=== PATIENT | female | born 1945 | race Caucasian/White ===

== ENCOUNTER 2017-10-14 15:47 | Inpatient (IN) | payer MEDICARE ==
[~2017-10-14] VITALS: Ht 162.6 cm; Wt 79.4 kg
[~2017-10-14 15:47] MED LIST: INDO25 PO; TRAM50 PO; UNKOWN HTN MED
[2017-11-02] MEDS ORDERED: TRAM50 PO (14:41)
[2017-11-02] MEDS ORDERED: LISI20 PO (14:42)
[2017-11-02] MEDS ORDERED: DICMIS50EC PO (14:43)
[2017-11-02] MEDS ORDERED: Flonase 0.05% N16 GM (14:43)
[2017-11-02] MEDS ORDERED: AMLO5 PO (14:44)
[2017-11-02] MEDS ORDERED: BACL10 PO (14:44)
[2017-11-02] MEDS ORDERED: FOLI1 PO (14:45)
[2017-11-02] MEDS ORDERED: METTREX2.5 PO (14:45)
[2017-11-02] MEDS ORDERED: DIPH50 PO (15:06)
[2017-11-16] MEDS ORDERED: MUPIROCIN1 GM TOP (06:48)
[2017-11-17 04:57] LABS: BASOPHILS ABSOLUTE AUTO 0.04 K/mm3 (0.00-0.23); BASOPHILS PERCENT AUTO 1 % (0-2); EOSINOPHILS ABSOLUTE AUTO 0.03 K/mm3 (0.00-0.68); EOSINOPHILS PERCENT AUTO 0 % (0-6); Hematocrit 33.7 % (33.0-51.0); Hemoglobin 10.9 g/dL (11.5-16.0); IMMATURE GRAN ABSOLUTE AUTO 0.02 K/mm3 (0.00-0.10); IMMATURE GRAN PERCENT AUTO 0 % (0-1); LYMPHOCYTES ABSOLUTE AUTO 1.06 K/mm3 (0.84-5.20); LYMPHOCYTES PERCENT AUTO 13 % (21-46); MONOCYTES ABSOLUTE AUTO 0.53 K/mm3 (0.16-1.47); MONOCYTES PERCENT AUTO 6 % (4-13); Mean Corpuscular HGB 29.6 pg (26.0-34.0); Mean Corpuscular HGB Conc 32.3 g/dL (31.5-36.5); Mean Corpuscular Volume 92 fL (80-100); Mean Platelet Volume 11.8 fL (9.1-12.4); NEUTROPHILS ABSOLUTE AUTO 6.82 K/mm3 (1.96-9.15); NEUTROPHILS PERCENT AUTO 80 % (41-73); Platelet Count 190 K/mm3 (150-400); RDW Coefficient Variation 12.6 % (11.7-14.2); RDW Standard Deviation 41.9 fL (35.1-46.3); Red Blood Cell Count 3.68 M/mm3 (3.80-5.20)
[2017-11-17 05:23] LABS: Anion Gap 8 mmol/L (6-16); Blood Urea Nitrogen 8 mg/dL (8-24); Bun/Creatinine Ratio 12.3 (12.0-20.0); CO2, Blood 27 mmol/L (21-32); Calcium, Blood 7.8 mg/dL (8.5-10.1); Chloride, Blood 104 mmol/L (98-108); Creatinine, Blood 0.65 mg/dL (0.40-1.00); Glomerular Filtration Rate >60 (60-); Glucose, Blood 122 mg/dL (70-99); Potassium, Blood 3.9 mmol/L (3.5-5.5); Sodium, Blood 139 mmol/L (136-145)
[2017-11-19] MEDS ORDERED: ASPI325 PO (09:04)
[2017-11-19] MEDS ORDERED: Percocet 5-3251 EACH PO (09:05)
[2017-11-19] MEDS ORDERED: Augmentin 875-1 EACH PO (09:05)
== END 2017-11-19 10:15 | disposition home health service (06) | DRG 470 ==
LOC: SURS 11-16 05:57 → PRE IP 11-16 07:30 → SURS 11-16 11:03
PROVIDERS: Orthopaedic Surgery
PROC: BQ14ZZZ Fluoroscopy of Left Femur (ICD-10-PCS; 2017-11-16)
PROC: 0SRB04Z Replacement of Left Hip Joint with Ceramic on Polyethylene Synthetic Substitute, Open Approach (ICD-10-PCS; principal; 2017-11-16 07:30)
DX: M16.12 Unilateral primary osteoarthritis, left hip (principal); M06.9 Rheumatoid arthritis, unspecified; I10 Essential (primary) hypertension; Z88.2 Allergy status to sulfonamides; Z88.5 Allergy status to narcotic agent; Z88.8 Allergy status to other drugs, medicaments and biological substances; R06.02 Shortness of breath; Z87.891 Personal history of nicotine dependence; Z79.899 Other long term (current) drug therapy
CPT/HCPCS: 36415; 71046; 72170; 80048; 85025; 86850; 86900; 86901; 88300; 93017; 97110; 97116; 97162; 97530; C1776; G8978; G8979; J0171; J0280; J0690; J0735; J1170; J1885; J2250; J2405; J2765; J2785; J2795; J3010; J7120; Q0163

== ENCOUNTER 2019-06-17 12:30 | Emergency (ER) | payer MEDICARE ==
[~2019-06-17] VITALS: Ht 162.6 cm; Wt 74.8 kg
[~2019-06-17 12:30] MED LIST changes: +AMLO5 PO; +ASPI325 PO; +Augmentin 875-1 EACH PO; +BACL10 PO; +DICMIS50EC PO; +DIPH50 PO; +FOLI1 PO; +Flonase 0.05% N16 GM; +LISI20 PO; +METTREX2.5 PO; +MUPIROCIN1 GM TOP; +Percocet 5-3251 EACH PO
[2019-06-17] MEDS ORDERED: TIZA4 PO (12:50)
[2019-06-17 13:01] LABS: BASOPHILS ABSOLUTE AUTO 0.08 K/mm3 (0.00-0.23); BASOPHILS PERCENT AUTO 1 % (0-2); EOSINOPHILS ABSOLUTE AUTO 0.12 K/mm3 (0.00-0.68); EOSINOPHILS PERCENT AUTO 1 % (0-6); Hematocrit 43.1 % (33.0-51.0); Hemoglobin 14.3 g/dL (11.5-16.0); IMMATURE GRAN ABSOLUTE AUTO 0.02 K/mm3 (0.00-0.10); IMMATURE GRAN PERCENT AUTO 0 % (0-1); LYMPHOCYTES ABSOLUTE AUTO 1.77 K/mm3 (0.84-5.20); LYMPHOCYTES PERCENT AUTO 21 % (21-46); MONOCYTES PERCENT AUTO 7 % (4-13); Mean Corpuscular HGB 30.9 pg (26.0-34.0); Mean Corpuscular HGB Conc 33.2 g/dL (31.5-36.5); Mean Corpuscular Volume 93 fL (80-100); Mean Platelet Volume 11.6 fL (9.1-12.4); NEUTROPHILS ABSOLUTE AUTO 6.05 K/mm3 (1.96-9.15); NEUTROPHILS PERCENT AUTO 70 % (41-73); Platelet Count 209 K/mm3 (150-400); RDW Coefficient Variation 13.4 % (11.7-14.2); RDW Standard Deviation 45.3 fL (35.1-46.3); Red Blood Cell Count 4.63 M/mm3 (3.80-5.20); White Blood Cell Count 8.64 K/mm3 (4.00-11.30)
[2019-06-17 13:23] LABS: Alanine Aminotransfer (ALT/SGP 25 U/L (12-78); Albumin, Blood 3.9 g/dL (3.4-5.0); Albumin/Globulin Ratio 1.1 (0.8-1.8); Alk Phos 81 U/L (50-136); Anion Gap 8 mmol/L (6-16); Aspartate Aminotrans (AST/SGOT 18 U/L (12-37); Bilirubin, Total 0.3 mg/dL (0.1-1.0); Blood Urea Nitrogen 18 mg/dL (8-24); Bun/Creatinine Ratio 18.5 (12.0-20.0); CO2, Blood 26 mmol/L (21-32); Calcium, Blood 8.7 mg/dL (8.5-10.1); Chloride, Blood 109 mmol/L (98-108); Creatinine, Blood 0.97 mg/dL (0.40-1.00); Globulin, Blood 3.5 g/dL (2.2-4.0); Glomerular Filtration Rate 60 (60-); Glucose, Blood 116 mg/dL (70-99); Potassium, Blood 4.2 mmol/L (3.5-5.5); Sodium, Blood 143 mmol/L (136-145); Total Protein, Blood 7.4 g/dL (6.4-8.2); Troponin I <0.015 ng/mL (0.000-0.040)
== END 2019-06-17 14:20 | disposition home or self-care (01) ==
LOC: ER 12:30
PROVIDERS: Physician Assistant
DX: R07.89 Other chest pain (principal); Z88.2 Allergy status to sulfonamides; Z88.8 Allergy status to other drugs, medicaments and biological substances; Z88.5 Allergy status to narcotic agent; Z88.1 Allergy status to other antibiotic agents; Z79.899 Other long term (current) drug therapy; Z79.82 Long term (current) use of aspirin; I10 Essential (primary) hypertension
CPT/HCPCS: 36415; 71046; 80053; 84484; 85025; 93005; 93010; 99285-25

== ENCOUNTER → 2021-09-22 | Outpatient (CLI) | payer MEDICARE ==
[~2021-09-22] MED LIST changes: +TIZA4 PO
== END ==
LOC: LAB 15:45 → LAB SHORT 15:45
DX: D48.5 Neoplasm of uncertain behavior of skin (principal); L82.1 Other seborrheic keratosis
CPT/HCPCS: 88305

== ENCOUNTER 2021-12-14 15:53 | Emergency (ER) | payer MEDICARE ==
[~2021-12-14] VITALS: Ht 162.6 cm; Wt 77.1 kg
[2021-12-14 16:40] LABS: BASOPHILS ABSOLUTE AUTO 0.05 K/mm3 (0.00-0.23); BASOPHILS PERCENT AUTO 1 % (0-2); EOSINOPHILS ABSOLUTE AUTO 0.13 K/mm3 (0.00-0.68); EOSINOPHILS PERCENT AUTO 2 % (0-6); Hematocrit 45.3 % (33.0-51.0); Hemoglobin 14.8 g/dL (11.5-16.0); IMMATURE GRAN ABSOLUTE AUTO 0.02 K/mm3 (0.00-0.10); IMMATURE GRAN PERCENT AUTO 0 % (0-1); LYMPHOCYTES ABSOLUTE AUTO 2.06 K/mm3 (0.84-5.20); LYMPHOCYTES PERCENT AUTO 30 % (21-46); MONOCYTES ABSOLUTE AUTO 0.48 K/mm3 (0.16-1.47); MONOCYTES PERCENT AUTO 7 % (4-13); Mean Corpuscular HGB 29.7 pg (26.0-34.0); Mean Corpuscular HGB Conc 32.7 g/dL (31.5-36.5); Mean Corpuscular Volume 91 fL (80-100); NEUTROPHILS ABSOLUTE AUTO 4.05 K/mm3 (1.96-9.15); NEUTROPHILS PERCENT AUTO 60 % (41-73); Platelet Count 231 K/mm3 (150-400); RDW Coefficient Variation 13.2 % (11.7-14.2); RDW Standard Deviation 44.1 fL (35.1-46.3); Red Blood Cell Count 4.98 M/mm3 (3.80-5.20); White Blood Cell Count 6.79 K/mm3 (4.00-11.30)
[2021-12-14 17:05] LABS: Alanine Aminotransfer (ALT/SGP 25 U/L (12-78); Albumin, Blood 3.8 g/dL (3.4-5.0); Albumin/Globulin Ratio 1.1 (0.8-1.8); Alk Phos 84 U/L (50-136); Anion Gap 4 mmol/L (6-16); Aspartate Aminotrans (AST/SGOT 16 U/L (12-37); Bilirubin, Total 0.4 mg/dL (0.1-1.0); Blood Urea Nitrogen 12 mg/dL (8-24); Bun/Creatinine Ratio 19.4 (12.0-20.0); CO2, Blood 26 mmol/L (21-32); Chloride, Blood 108 mmol/L (98-108); Creatinine, Blood 0.62 mg/dL (0.40-1.00); Globulin, Blood 3.4 g/dL (2.2-4.0); Glomerular Filtration Rate >60 (60-); Glucose, Blood 109 mg/dL (70-99); Potassium, Blood 3.9 mmol/L (3.5-5.5); Sodium, Blood 138 mmol/L (136-145); Total Protein, Blood 7.2 g/dL (6.4-8.2)
[2021-12-14] MEDS ORDERED: Norvasc5 MG PO (19:01)
[2021-12-14] MEDS ORDERED: Aspirin EC81 MG PO (19:01)
== END 2021-12-14 20:15 | disposition home or self-care (01) ==
LOC: ER 15:53
PROVIDERS: Physician Assistant
DX: G45.9 Transient cerebral ischemic attack, unspecified (principal); I10 Essential (primary) hypertension; Z87.891 Personal history of nicotine dependence; Z79.82 Long term (current) use of aspirin; Z79.899 Other long term (current) drug therapy; Z88.2 Allergy status to sulfonamides; Z88.8 Allergy status to other drugs, medicaments and biological substances; Z88.5 Allergy status to narcotic agent
CPT/HCPCS: 36415; 70450; 70496; 70498; 80053; 83036; 84443; 85025; 93005; 93010; 99284-25; A9270; Q9967

== ENCOUNTER 2022-06-09 07:44 | Day surgery (SDC) | payer MEDICARE ==
[~2022-06-09] VITALS: Ht 162.6 cm; Wt 71.8 kg
[~2022-06-09 07:44] MED LIST changes: +Aspirin EC81 MG PO; +CALCIUM CIT 311 EAC7 PO; +FOLIC-K CAPSUL1 EACH PO; +MAGNESIUM OXID500 MG PO; +Millipred5 MG PO; +Norvasc5 MG PO; +VITAMIN D310 MC4 PO; +Vitamin B Comple1 EA PO; +Voltaren100 GM TOP
[2022-06-09] MEDS ORDERED: ASPIR 8181 M1 PO (08:49)
--- NOTE | 2022-06-09 10:01 | NUR ---
PT TESTED POSITIVE FOR MSSA, DR. SHERIDAN ORDERED 1 G VANCO TO BE GIVEN IN PREOP. PT TOLERATED VANCO UNTIL 20 MINUTES IN TO ADMINISTATION AT 0951 WHEN VERY SUDDENLY HER SCALP TURNED RED, SHE HAD ITCHY HIVES AND HER UPPER EXTREMITIES FELT COOL TO THE TOUCH. VANCO IMMEDIATELY STOPPED, PT PUT ON O2 MONITORING, DR. SHERIDAN AND DR. DURÁN CONSULTED. DR. DURÁN AT BEDSIDE, DENIED PATIENT REQUIRING ANY OTHER MEDICATIONS FOR CONDITION. WITHIN TWO MINUTES, PATIENT'S SCALP BEGAN TO FADE FROM RED TO WITHIN HER NORMAL SKIN COLOR (LIGHT BEIGE) AND HER EXTREMITIES FELT WARM AGAIN. NO OTHER SIDE EFFECTS NOTED.
--- NOTE | 2022-06-09 15:27 | NUR ---
PT ARRIVED TO THE ROOM AT APPROXIMATELY 1445. PT REPORTS PAIN AT 8/10, PO PAIN MEDICATION GIVEN. SURGICAL SITE COVERED WITH ZEYAD WRAP, C/D/I. FAMILY IS AT THE BEDSIDE FOR SUPPORT. WILL CONTINUE TO MONITOR.
--- NOTE | 2022-06-10 04:25 | NUR ---
SHIFT SUMMARY PATIENT A&OX4, PLEASANT AND COOPERATIVE. 1 ASSIST WITH FFW. VOIDING AND TOLERATING PO INTAKE, NO NAUSEA. 2 TABS OF OXYCODONE FOR PAIN MANAGEMENT WORKS WELL. CALL LIGHT WITHIN REACH
[2022-06-10 05:01] LABS: BASOPHILS ABSOLUTE AUTO 0.02 K/mm3 (0.00-0.23); BASOPHILS PERCENT AUTO 0 % (0-2); EOSINOPHILS PERCENT AUTO 0 % (0-6); Hematocrit 36.2 % (33.0-51.0); Hemoglobin 11.8 g/dL (11.5-16.0); IMMATURE GRAN ABSOLUTE AUTO 0.05 K/mm3 (0.00-0.10); IMMATURE GRAN PERCENT AUTO 0 % (0-1); LYMPHOCYTES ABSOLUTE AUTO 1.19 K/mm3 (0.84-5.20); LYMPHOCYTES PERCENT AUTO 9 % (21-46); MONOCYTES ABSOLUTE AUTO 0.73 K/mm3 (0.16-1.47); MONOCYTES PERCENT AUTO 6 % (4-13); Mean Corpuscular HGB Conc 32.6 g/dL (31.5-36.5); Mean Corpuscular Volume 89 fL (80-100); Mean Platelet Volume 12.4 fL (9.1-12.4); NEUTROPHILS ABSOLUTE AUTO 10.82 K/mm3 (1.96-9.15); NEUTROPHILS PERCENT AUTO 84 % (41-73); Platelet Count 185 K/mm3 (150-400); RDW Coefficient Variation 12.2 % (11.7-14.2); RDW Standard Deviation 39.8 fL (35.1-46.3); Red Blood Cell Count 4.07 M/mm3 (3.80-5.20); White Blood Cell Count 12.81 K/mm3 (4.00-11.30)
[2022-06-10 05:30] LABS: Calcium, Blood 8.2 mg/dL (8.5-10.1); Creatinine, Blood 0.5 mg/dL (0.40-1.00); Potassium, Blood 4.5 mmol/L (3.5-5.5)
--- NOTE | 2022-06-10 08:16 | NUR ---
BLOOD PRESSURE MEDICATIONS PT REQUESTED TO HOLD HER BLOOD PRESSURE MEDICATIONS THAT ARE ORDERED ONCE A DAY TO BE GIVEN IN THE MORNING SINCE THAT IS WHEN SHE NORMALLY TAKES THEM. HER 2100 DOSE LAST NIGHT WAS HELD DUE TO THIS REQUEST AND GIVEN THIS MORNING BY THIS RN.
--- NOTE | 2022-06-10 11:54 | NUR ---
DISCHARGE SUMMARY POD1 L TKA, A/OX4, VSS, TOLERATING PO, AMBULATING WITH MINIMAL ASSISTANCE, VOIDING WELL. DISCUSSED DISCHARGE INFORMATION WITH THE PATIENT AND HER INCLUDING HOME CARE, DRESSING CHANGES, ICE AND ELEVATION OF THE KNEE, MEDICATIONS, S/SX TO LOOK OUT FOR POSSIBLE INFECTION, AND FOLLOW UP APPOINTMENTS. PT ASKED IF SHE COULD TAKE HER OTC ASA INSTEAD OF FILLING THE SCRIPT GIVEN TO HER FOR IT WHICH SHE WAS TOLD SHE COULD. NO OTHER QUESTIONS AT THIS TIME. VERIFIED SIZE OF DRESSING AND PROVIDED AN EXTRA TO CHANGE OUT IN 5-7 DAYS. REMOVED IV ACCESS AND NO OTHER DEVICES IN PLACE. ESCORTED OUT VIA WC TO PRIVATE AUTO TO GO HOME.
== END 2022-06-10 11:32 | disposition home or self-care (01) ==
LOC: ORSCMMR 07:44 → SURS 14:44 → ORSCMMR 06-10 11:32
PROVIDERS: Orthopaedic Surgery
PROC: 0SRD0JA Replacement of Left Knee Joint with Synthetic Substitute, Uncemented, Open Approach (ICD-10-PCS; principal; 2022-06-09 12:00)
DX: M17.0 Bilateral primary osteoarthritis of knee (principal); Z96.642 Presence of left artificial hip joint; I10 Essential (primary) hypertension; Z86.73 Personal history of transient ischemic attack (TIA), and cerebral infarction without residual deficits; Z87.891 Personal history of nicotine dependence
CPT/HCPCS: 36415; 73560-LT; 80048; 85025; 97110; 97116; 97162; 97530; A9270; C1776; J0171; J0330; J0690; J0735; J1100; J1170; J1885; J2270; J2370; J2405; J2704; J2765; J2795; J3010; J3370; J7050; J7120

== ENCOUNTER 2022-07-24 12:15 | Day surgery (SDC) | payer MEDICARE ==
[~2022-07-24] VITALS: Ht 162.6 cm; Wt 70.4 kg
[~2022-07-24 12:15] MED LIST changes: +ASPIR 8181 M1 PO
[2022-07-24] MEDS ORDERED: LOW DOSE ASPIRI81 M1 PO (13:08)
[2022-07-24] MEDS ORDERED: Percocet 5-3251 EACH (13:09)
[2022-07-24] MEDS ORDERED: LISI20 PO (13:09)
--- NOTE | 2022-07-24 13:36 | NUR ---
07/24/22 1336 Darling Cao MANIPULATION PERFORMED ON [facility]
--- NOTE | 2022-07-24 15:49 | NUR ---
07/24/22 1549 Cristino Joy PT REPORTS 3/10 PAIN UPON DISCHARGE, BUT STATES PAIN IS AT A TOLERABLE LEVEL TO GO HOME.
== END 2022-07-24 15:55 | disposition home or self-care (01) ==
LOC: ORSCSDS 12:15
PROVIDERS: Orthopaedic Surgery
PROC: 0SSDXZZ Reposition Left Knee Joint, External Approach (ICD-10-PCS; principal; 2022-07-24 13:45)
DX: M24.662 Ankylosis, left knee (principal); Z96.652 Presence of left artificial knee joint; I10 Essential (primary) hypertension; Z87.891 Personal history of nicotine dependence; K21.9 Gastro-esophageal reflux disease without esophagitis; Z86.73 Personal history of transient ischemic attack (TIA), and cerebral infarction without residual deficits; Z79.899 Other long term (current) drug therapy; Z79.82 Long term (current) use of aspirin
CPT/HCPCS: 73560-LT; A9270; J0690; J2250; J2704; J3010; J7120

== ENCOUNTER 2023-08-16 19:50 | Emergency (ER) | payer MEDICARE ==
[~2023-08-16] VITALS: Ht 162.6 cm; Wt 72.1 kg
[~2023-08-16 19:50] MED LIST changes: +LOW DOSE ASPIRI81 M1 PO; +Percocet 5-3251 EACH
[2023-08-16 20:01] VITALS: BP 153/91
== END 2023-08-16 21:31 | disposition home or self-care (01) ==
LOC: ER 19:50
DX: S80.01XA Contusion of right knee, initial encounter (principal); Y04.8XXA Assault by other bodily force, initial encounter; Z88.2 Allergy status to sulfonamides; Z88.8 Allergy status to other drugs, medicaments and biological substances; Z88.5 Allergy status to narcotic agent; Z79.899 Other long term (current) drug therapy; Z79.82 Long term (current) use of aspirin; M06.9 Rheumatoid arthritis, unspecified; M16.11 Unilateral primary osteoarthritis, right hip; I10 Essential (primary) hypertension; Z87.891 Personal history of nicotine dependence
CPT/HCPCS: 29505; 73562-RT; 99283-25

== ENCOUNTER 2023-11-29 11:07 | Emergency (ER) | payer MEDICARE ==
[~2023-11-29] VITALS: Ht 162.6 cm; Wt 74.8 kg
[2023-11-29 12:31] LABS: BASOPHILS ABSOLUTE AUTO 0.05 K/mm3 (0.00-0.23); BASOPHILS PERCENT AUTO 1 % (0-2); EOSINOPHILS ABSOLUTE AUTO 0.01 K/mm3 (0.00-0.68); EOSINOPHILS PERCENT AUTO 0 % (0-6); Hematocrit 49.1 % (33.0-51.0); Hemoglobin 16.7 g/dL (11.5-16.0); IMMATURE GRAN ABSOLUTE AUTO 0.03 K/mm3 (0.00-0.10); IMMATURE GRAN PERCENT AUTO 0 % (0-1); LYMPHOCYTES ABSOLUTE AUTO 1.61 K/mm3 (0.84-5.20); LYMPHOCYTES PERCENT AUTO 16 % (21-46); MONOCYTES ABSOLUTE AUTO 0.63 K/mm3 (0.16-1.47); MONOCYTES PERCENT AUTO 6 % (4-13); Mean Corpuscular HGB 28.8 pg (26.0-34.0); Mean Corpuscular Volume 85 fL (80-100); Mean Platelet Volume 11.2 fL (9.1-12.4); NEUTROPHILS ABSOLUTE AUTO 7.67 K/mm3 (1.96-9.15); NEUTROPHILS PERCENT AUTO 77 % (41-73); Platelet Count 259 K/mm3 (150-400); RDW Coefficient Variation 12.6 % (11.7-14.2); RDW Standard Deviation 38.5 fL (35.1-46.3); Red Blood Cell Count 5.79 M/mm3 (3.80-5.20)
[2023-11-29 13:09] LABS: Albumin, Blood 3.9 g/dL (3.4-5.0); Bilirubin, Total 0.6 mg/dL (0.1-1.0); Bun/Creatinine Ratio 21.8 (12.0-20.0); Calcium, Blood 10.2 mg/dL (8.5-10.1); Creatinine, Blood 0.83 mg/dL (0.40-1.00); Potassium, Blood 3.8 mmol/L (3.5-5.5); Total Protein, Blood 7.9 g/dL (6.4-8.2)
[2023-11-29] MEDS ORDERED: NS 1,000 ML IV SCH (16:15)
[2023-11-29] MEDS ORDERED: Ondansetron HCl 2 MG / ML 2ML Vial IV ONE (16:15)
[2023-11-29] MEDS ORDERED: TRAM50 PO (16:35)
[2023-11-29] MEDS ORDERED: Mag Hydrox/AL Hydrox/Simeth 30 ML UDC PO ONE (17:50)
[2023-11-29] MEDS ORDERED: Promethazine HCl 25 MG Tab PO ONE (17:50)
[2023-11-29] MEDS ORDERED: Pantoprazole Sodium 40 MG Injection IV ONE (17:50)
[2023-11-29 18:25] LABS: Source, Urine Clean Catch
[2023-11-29 18:33] LABS: Appearance, Urine Cloudy (Clear); Bilirubin, Urine Neg (Neg); Blood, Urine 1+ (Neg); Color, Urine Yellow (P-Yellow); Glucose Qualitative, Urine Neg (Neg); Ketones, Urine Neg (Neg); Leukocyte Esterase, Urine 3+ (Neg); Nitrite, Urine Neg (Neg); Protein, Urine 2+ (Neg); Specific Gravity, Urine 1.015 (1.003-1.022); Urobilinogen, Urine 1+ (Normal)
[2023-11-29 18:41] LABS: Bacteria Many /hpf; Squamous Epithelial Cells Mod /hpf (Few); White Blood Cells, Urine 25-50 /hpf (0-5)
[2023-11-29 18:42] LABS: Amorphous Light (0-Heavy); Mucus Light (0-Heavy); Transitional Epithelial Cells Rare /hpf (0-Rare)
[2023-11-29] MEDS ORDERED: ONDA4 PO (19:00)
[2023-11-29 19:23] VITALS: BP 150/131
== END 2023-11-29 19:25 | disposition home or self-care (01) ==
LOC: ER 11:07
PROVIDERS: Physician Assistant; Student in an Organized Health Care Education/Training Program
DX: K29.70 Gastritis, unspecified, without bleeding (principal); I10 Essential (primary) hypertension; Z88.2 Allergy status to sulfonamides; Z88.5 Allergy status to narcotic agent; Z88.6 Allergy status to analgesic agent; Z79.899 Other long term (current) drug therapy; Z79.82 Long term (current) use of aspirin; Z87.891 Personal history of nicotine dependence
CPT/HCPCS: 71046; 76705; 80053; 81001; 83690; 84484; 85025; 87086; 93005; 93010; 96361; 96374; 96375; 99284-25; A9270; C9113; J2405; J7030

== ENCOUNTER → 2024-02-14 | Outpatient (CLI) | payer MEDICARE ==
[~2024-02-14] MED LIST changes: +ONDA4 PO
[2024-02-14 15:50] LABS: BASOPHILS ABSOLUTE AUTO 0.07 K/mm3 (0.00-0.23); BASOPHILS PERCENT AUTO 1 % (0-2); EOSINOPHILS ABSOLUTE AUTO 0.29 K/mm3 (0.00-0.68); EOSINOPHILS PERCENT AUTO 5 % (0-6); Hematocrit 42.3 % (33.0-51.0); Hemoglobin 13.8 g/dL (11.5-16.0); IMMATURE GRAN ABSOLUTE AUTO 0.01 K/mm3 (0.00-0.10); IMMATURE GRAN PERCENT AUTO 0 % (0-1); LYMPHOCYTES ABSOLUTE AUTO 1.51 K/mm3 (0.84-5.20); LYMPHOCYTES PERCENT AUTO 26 % (21-46); MONOCYTES ABSOLUTE AUTO 0.57 K/mm3 (0.16-1.47); MONOCYTES PERCENT AUTO 10 % (4-13); Mean Corpuscular HGB 28.3 pg (26.0-34.0); Mean Corpuscular HGB Conc 32.6 g/dL (31.5-36.5); Mean Corpuscular Volume 87 fL (80-100); Mean Platelet Volume 10.4 fL (9.1-12.4); NEUTROPHILS ABSOLUTE AUTO 3.37 K/mm3 (1.96-9.15); NEUTROPHILS PERCENT AUTO 58 % (41-73); Platelet Count 232 K/mm3 (150-400); RDW Coefficient Variation 14.5 % (11.7-14.2); RDW Standard Deviation 44.9 fL (35.1-46.3); Red Blood Cell Count 4.87 M/mm3 (3.80-5.20); White Blood Cell Count 5.82 K/mm3 (4.00-11.30)
[2024-02-14 16:00] LABS: Albumin, Blood 3.9 g/dL (3.4-5.0); Bilirubin, Total 0.5 mg/dL (0.1-1.0); Calcium, Blood 9.2 mg/dL (8.5-10.1); Creatinine, Blood 0.62 mg/dL (0.40-1.00); Globulin, Blood 3.9 g/dL (2.2-4.0); Potassium, Blood 4.1 mmol/L (3.5-5.5); Total Protein, Blood 7.8 g/dL (6.4-8.2)
[2024-02-16 20:45] LABS: RHEUMATOID FACTOR 243 IU/mL (0-14)
[2024-02-17 04:23] LABS: ANTI-NUCLEAR AB ANA,IGG ELISA None Detected (None Detected)
== END | disposition home or self-care (01) ==
LOC: LAB 15:43 → LAB SHORT 15:43
PROVIDERS: Physician Assistant
DX: R53.83 Other fatigue (principal); Z87.39 Personal history of other diseases of the musculoskeletal system and connective tissue
CPT/HCPCS: 80053; 85025; 85651; 86038; 86140; 86431

== ENCOUNTER 2024-12-12 11:05 | Day surgery (SDC) | payer MEDICARE ==
[~2024-12-12] VITALS: Ht 162.6 cm; Wt 76.1 kg
[~2024-12-12 11:05] MED LIST changes: +AMLODIPINE BESYL5 MG PO; +FOSAMAX70 MG PO; +HYDROCODONE-AC1 EA19 PO; +Lactated Ringer's 1,000 ML IV ONE; +METHOTREXATE2.510 PO; +OMEP20ER PO; +PRED1 PO
[2024-12-12] MEDS ORDERED: Diamox500 MG PO (11:27)
[2024-12-12] MEDS ORDERED: REFRESH TEARS P10 ML OP (11:27)
[2024-12-12] MEDS ORDERED: BENADRYL25 MG PO (11:27)
[2024-12-12] MEDS ORDERED: FOLI1 PO (11:28)
[2024-12-12] MEDS ORDERED: Lactated Ringer's 1,000 ML IV ONE (11:40)
[2024-12-12] MEDS ORDERED: propofoL 50 ML IV ONE (12:07)
[2024-12-12] MEDS ORDERED: Lidocaine HCl 4% 5 ML SDA ONE (12:15)
[2024-12-12 14:01] VITALS: BP 146/88
== END 2024-12-12 13:59 | disposition home or self-care (01) ==
LOC: ORSCSDS 11:05
PROVIDERS: Internal Medicine Gastroenterology
PROC: 0DBL8ZX Excision of Transverse Colon, Via Natural or Artificial Opening Endoscopic, Diagnostic (ICD-10-PCS; principal; 2024-12-12 13:00)
PROC: 0DBP8ZX Excision of Rectum, Via Natural or Artificial Opening Endoscopic, Diagnostic (ICD-10-PCS; principal; 2024-12-12 13:00)
PROC: 0DJ08ZZ Inspection of Upper Intestinal Tract, Via Natural or Artificial Opening Endoscopic (ICD-10-PCS; principal; 2024-12-12 13:00)
DX: Z12.11 Encounter for screening for malignant neoplasm of colon (principal); D12.3 Benign neoplasm of transverse colon; K63.5 Polyp of colon; Z87.19 Personal history of other diseases of the digestive system; K57.30 Diverticulosis of large intestine without perforation or abscess without bleeding; K21.9 Gastro-esophageal reflux disease without esophagitis; Z86.73 Personal history of transient ischemic attack (TIA), and cerebral infarction without residual deficits; Z87.891 Personal history of nicotine dependence; Z79.899 Other long term (current) drug therapy
CPT/HCPCS: 88305; J2003; J2704; J7120

== ENCOUNTER 2025-06-20 06:07 | Day surgery (SDC) | payer OTHER ==
[~2025-06-20] VITALS: Ht 162.6 cm; Wt 80.5 kg
[~2025-06-20 06:07] MED LIST changes: +BENADRYL25 MG PO; +Diamox500 MG PO; -Lactated Ringer's 1,000 ML IV ONE; +REFRESH TEARS P10 ML OP
[2025-06-20] MEDS ORDERED: Povidone-Iodine 450 DROP/30 ML Solution ONE (06:12)
[2025-06-20] MEDS ORDERED: Tetracaine HCl/Pf 0.5% Opth Soln 4 ml ONE (06:12)
[2025-06-20] MEDS ORDERED: Tetracaine HCl 0.5% Opth Soln 15 ml ONE (06:30)
[2025-06-20] MEDS ORDERED: Triamcinolone Inj Susp 40 MG / ML 1ML Vial ONE (06:39)
--- NOTE | 2025-06-20 06:42 | NUR ---
06/20/25 0642 Marlene Santamaria PT STATES ANXIETY LEVEL IN PREOP IS 3/10 PT IS ON CONTINUOUS PULSE OX CALL LIGHT IN HAND
[2025-06-20] MEDS ORDERED: MOMETASONE FUROATE (06:45)
[2025-06-20] MEDS ORDERED: IPRATROPIUM BRO30 ML (06:46)
[2025-06-20] MEDS ORDERED: LOSA50 (06:46)
[2025-06-20] MEDS ORDERED: Moxifloxacin HCL 0.5 MG/0.1 ML 0.4MLSYR RIGHTEYE ONE (07:39)
[2025-06-20] MEDS ORDERED: Balanced Salt Epinephrine Irrigation Solution 500 mL RIGHTEYE ONE (07:39)
--- NOTE | 2025-06-20 07:41 | NUR ---
06/20/25 0741 Sherri Vargas 0735 BP:164/90 HR:64 O2:95% RESP:18
[2025-06-20 07:52] VITALS: BP 154/85
[2025-06-20] MEDS ORDERED: Ondansetron 4 MG SoluTab MM PRN (08:15)
[2025-06-20] MEDS ORDERED: Balanced Salt Epinephrine Irrigation Solution 500 mL IR SCH (10:00)
[2025-06-20] MEDS ORDERED: Triamcinolone Inj Susp 40 MG / ML 1ML Vial INJ SCH (10:05)
[2025-06-20] MEDS ORDERED: Povidone-Iodine 450 DROP/30 ML Solution RIGHTEYE SCH (10:05)
[2025-06-20] MEDS ORDERED: Moxifloxacin HCL 0.5 MG/0.1 ML 0.4MLSYR RIGHTEYE SCH (10:05)
[2025-06-20] MEDS ORDERED: PHENYLEPHRINE\\TROPICAMIDE\\TETRACAINE OPHTHALMIC DILATING SOLN RIGHTEYE PRN (10:05)
[2025-06-21] MEDS ORDERED: Moxifloxacin HCL 0.5 MG/0.1 ML 0.4MLSYR RIGHTEYE SCH (06:00)
[2025-06-21] MEDS ORDERED: Balanced Salt Epinephrine Irrigation Solution 500 mL IR SCH (06:00)
[2025-06-21] MEDS ORDERED: Triamcinolone Inj Susp 40 MG / ML 1ML Vial INJ SCH (06:00)
[2025-06-21] MEDS ORDERED: Povidone-Iodine 450 DROP/30 ML Solution RIGHTEYE SCH (06:00)
[2025-06-21] MEDS ORDERED: PHENYLEPHRINE\\TROPICAMIDE\\TETRACAINE OPHTHALMIC DILATING SOLN RIGHTEYE PRN (06:00)
== END 2025-06-20 08:10 | disposition home or self-care (01) ==
LOC: ORSCSDS 06:07
PROVIDERS: Ophthalmology
PROC: 08RJ3JZ Replacement of Right Lens with Synthetic Substitute, Percutaneous Approach (ICD-10-PCS; principal; 2025-06-20 07:30)
DX: H25.811 Combined forms of age-related cataract, right eye (principal); I10 Essential (primary) hypertension; Z86.73 Personal history of transient ischemic attack (TIA), and cerebral infarction without residual deficits; Z79.82 Long term (current) use of aspirin; Z79.899 Other long term (current) drug therapy
CPT/HCPCS: A9270; J2003; J3301; V2632

== ENCOUNTER 2025-07-04 08:05 | Day surgery (SDC) | payer MEDICARE ==
[~2025-07-04] VITALS: Ht 162.6 cm; Wt 80.1 kg
[~2025-07-04 08:05] MED LIST changes: +Balanced Salt Epinephrine Irrigation Solution 500 mL IR SCH; +IPRATROPIUM BRO30 ML; +LOSA50; +MOMETASONE FUROATE; +Moxifloxacin HCL 0.5 MG/0.1 ML 0.4MLSYR LEFTEYE SCH; +Ondansetron 4 MG SoluTab MM PRN; +PHENYLEPHRINE\\TROPICAMIDE\\TETRACAINE OPHTHALMIC DILATING SOLN LEFTEYE PRN; +Povidone-Iodine 450 DROP/30 ML Solution LEFTEYE SCH; +Povidone-Iodine 450 DROP/30 ML Solution ONE; +Tetracaine HCl/Pf 0.5% Opth Soln 4 ml ONE; +Triamcinolone Inj Susp 40 MG / ML 1ML Vial INJ SCH; +Triamcinolone Inj Susp 40 MG / ML 1ML Vial ONE
--- NOTE | 2025-07-04 08:42 | NUR ---
07/04/25 0842 Marlene Santamaria PT STATES ANXIETY LEVEL IS 0/10 IN PREOP PT HAS CALL LIGHT IN HAND PT IS ON CONTINUOUS PULSE OX MONITORING
--- NOTE | 2025-07-04 09:19 | NUR ---
07/04/25 0919 CHAGO FAULKNER PT VSS T/O PROCEDURE 163/89 HR 65, O2 100%
[2025-07-04 09:28] VITALS: BP 166/79
== END 2025-07-04 09:44 | disposition home or self-care (01) ==
LOC: ORSCSDS 08:05
PROVIDERS: Ophthalmology
PROC: 08RK3JZ Replacement of Left Lens with Synthetic Substitute, Percutaneous Approach (ICD-10-PCS; principal; 2025-07-04 09:30)
DX: H25.812 Combined forms of age-related cataract, left eye (principal); Z96.1 Presence of intraocular lens; I10 Essential (primary) hypertension; Z86.73 Personal history of transient ischemic attack (TIA), and cerebral infarction without residual deficits; D89.89 Other specified disorders involving the immune mechanism, not elsewhere classified; Z87.891 Personal history of nicotine dependence; Z79.899 Other long term (current) drug therapy
CPT/HCPCS: A9270; J3301; V2632

== ENCOUNTER 2025-07-08 13:00 | Emergency (ER) | payer MEDICARE ==
[~2025-07-08] VITALS: Ht 162.6 cm; Wt 78.9 kg
[~2025-07-08 13:00] MED LIST changes: -Balanced Salt Epinephrine Irrigation Solution 500 mL IR SCH; -Moxifloxacin HCL 0.5 MG/0.1 ML 0.4MLSYR LEFTEYE SCH; -Ondansetron 4 MG SoluTab MM PRN; -PHENYLEPHRINE\\TROPICAMIDE\\TETRACAINE OPHTHALMIC DILATING SOLN LEFTEYE PRN; -Povidone-Iodine 450 DROP/30 ML Solution LEFTEYE SCH; -Povidone-Iodine 450 DROP/30 ML Solution ONE; -Tetracaine HCl/Pf 0.5% Opth Soln 4 ml ONE; -Triamcinolone Inj Susp 40 MG / ML 1ML Vial INJ SCH; -Triamcinolone Inj Susp 40 MG / ML 1ML Vial ONE
[2025-07-08 13:27] LABS: BASOPHILS ABSOLUTE AUTO 0.07 K/mm3 (0.00-0.23); BASOPHILS PERCENT AUTO 1 % (0-2); EOSINOPHILS ABSOLUTE AUTO 0.21 K/mm3 (0.00-0.68); EOSINOPHILS PERCENT AUTO 3 % (0-6); Hematocrit 42.5 % (33.0-51.0); Hemoglobin 13.9 g/dL (11.5-16.0); IMMATURE GRAN ABSOLUTE AUTO 0.01 K/mm3 (0.00-0.10); IMMATURE GRAN PERCENT AUTO 0 % (0-1); LYMPHOCYTES ABSOLUTE AUTO 1.59 K/mm3 (0.84-5.20); LYMPHOCYTES PERCENT AUTO 24 % (21-46); MONOCYTES ABSOLUTE AUTO 0.56 K/mm3 (0.16-1.47); MONOCYTES PERCENT AUTO 8 % (4-13); Mean Corpuscular HGB Conc 32.7 g/dL (31.5-36.5); Mean Corpuscular Volume 92 fL (80-100); NEUTROPHILS ABSOLUTE AUTO 4.20 K/mm3 (1.96-9.15); NEUTROPHILS PERCENT AUTO 63 % (41-73); NRBC ABSOLUTE 0.00 K/mm3 (0.00-0.02); NRBC Auto 0.0 /100 WBC (0.0-0.2); Platelet Count 215 K/mm3 (150-400); RDW Coefficient Variation 13.5 % (11.7-14.2); RDW Standard Deviation 45.1 fL (35.1-46.3)
[2025-07-08 14:01] LABS: Alanine Aminotransfer (ALT/SGP 22.0 U/L (12-78); Albumin, Blood 3.8 g/dL (3.4-5.0); Albumin/Globulin Ratio 1.1 (0.8-1.8); Anion Gap 5.0 mmol/L (3-11); Aspartate Aminotrans (AST/SGOT 25.0 U/L (12-37); Bilirubin, Total 0.4 mg/dL (0.1-1.0); Blood Urea Nitrogen 16.0 mg/dL (8-24); CO2, Blood 28.0 mmol/L (21-32); Calcium, Blood 8.6 mg/dL (8.5-10.1); Chloride, Blood 109.0 mmol/L (98-108); Creatinine, Blood 0.81 mg/dL (0.40-1.00); Globulin, Blood 3.4 g/dL (2.2-4.0); Glucose, Blood 88.0 mg/dL (70-99); Potassium, Blood 4.3 mmol/L (3.5-5.5); Sodium, Blood 138.0 mmol/L (136-145); Total Protein, Blood 7.2 g/dL (6.4-8.2)
[2025-07-08 14:32] LABS: Prothrombin Time Results 11.4 Sec (9.7-11.5)
[2025-07-08 18:00] VITALS: BP 175/92
== END 2025-07-08 19:36 | disposition home or self-care (01) ==
LOC: ER 13:00
PROVIDERS: Emergency Medicine
DX: G45.9 Transient cerebral ischemic attack, unspecified (principal); I10 Essential (primary) hypertension; M06.9 Rheumatoid arthritis, unspecified; Z86.73 Personal history of transient ischemic attack (TIA), and cerebral infarction without residual deficits; Z87.891 Personal history of nicotine dependence; Z88.2 Allergy status to sulfonamides; Z88.6 Allergy status to analgesic agent; Z88.5 Allergy status to narcotic agent; Z79.631 Long term (current) use of antimetabolite agent; Z79.899 Other long term (current) drug therapy
CPT/HCPCS: 70450; 70496; 70498; 70551; 80053; 85025; 85610; 85730; 93005; 93010; 99285-25; A9270; Q9967